=== PATIENT | male | born 1950 | race Caucasian/White ===

== ENCOUNTER 2023-01-27 18:55 | Emergency (ER) | payer OTHER ==
[~2023-01-27] VITALS: Ht 185.4 cm; Wt 111.1 kg
[2023-01-27 22:20] VITALS: BP 152/77
== END 2023-01-28 01:15 | disposition home or self-care (01) ==
LOC: ER 18:55
DX: M25.061 Hemarthrosis, right knee (principal)
CPT/HCPCS: 20610; 29505; 73560-RT; 99283-25